=== PATIENT | male | born 1955 | race Caucasian/White ===

== ENCOUNTER 2016-06-24 | Outpatient (CLI) | payer OTHER | END 2016-06-24 08:47 | disposition critical access hospital (66) | DX: R45.851 Suicidal ideations (principal) | CPT/HCPCS: A0425; A0429 ==

== ENCOUNTER 2016-06-24 09:17 | Emergency (ER) | payer OTHER ==
[2016-06-24] MEDS ORDERED: LORazepam 0.5 MG TABLET PO STA (14:50)
[2016-06-24] MEDS ORDERED: LORazepam 0.5 MG TABLET ONE (15:00)
== END 2016-06-24 20:35 ==
DX: Z03.89 Encounter for observation for other suspected diseases and conditions ruled out (principal); F33.2 Major depressive disorder, recurrent severe without psychotic features; Z63.5 Disruption of family by separation and divorce; E11.9 Type 2 diabetes mellitus without complications; Z79.84 Long term (current) use of oral hypoglycemic drugs; Z91.14 Patient's other noncompliance with medication regimen; F41.0 Panic disorder [episodic paroxysmal anxiety]
CPT/HCPCS: 36415; 80048; 80306; 80320; 81001; 84443; 85025; 99285; A9270

== ENCOUNTER 2016-07-29 01:03 | Outpatient (CLI) | payer OTHER | END 2016-07-29 01:04 | disposition critical access hospital (66) | LOC: EMS 01:03 | PROVIDERS: ATTEND Surgery | DX: R42 Dizziness and giddiness (principal); W19.XXXA Unspecified fall, initial encounter; Y92.002 Bathroom of unspecified non-institutional (private) residence as the place of occurrence of the external cause | CPT/HCPCS: A0425; A0427 ==

== ENCOUNTER 2016-07-29 01:27 | Emergency (ER) | payer OTHER ==
[2016-07-29] MEDS ORDERED: SODIUM CHLORIDE 0.9% 1,000 ML IV ONE ×2 (02:07→03:05)
== END 2016-07-29 04:22 | disposition home or self-care (01) ==
DX: E86.0 Dehydration (principal); R41.82 Altered mental status, unspecified; R55 Syncope and collapse; R00.1 Bradycardia, unspecified; E11.9 Type 2 diabetes mellitus without complications

== ENCOUNTER 2016-12-19 09:21 | Outpatient (CLI) | payer OTHER | END 2016-12-19 09:22 | disposition critical access hospital (66) | LOC: EMS 09:21 | PROVIDERS: ATTEND Surgery | DX: R45.851 Suicidal ideations (principal) | CPT/HCPCS: A0425; A0429 ==

== ENCOUNTER 2016-12-19 09:53 | Emergency (ER) | payer OTHER ==
--- NOTE | 2016-12-19 10:08 | ED Physician Documentation ---
PD HPI MHE - Stated complaint Stated Complaint: MHE - Chief complaint Chief Complaint: MHE - History obtained from History obtained from: Patient, EMS - History of Present Illness Primary symptom: Suicidal ideation Timing - onset: Chronic Pain level max: 0 Pain level now: 0 Contributing factors: Family Similar symptoms before: Diagnosis (depression) Recently seen: Other (seen by his counselor and psychiatrist Tuesday at [facility]) - Additional information Additional information: States still feels suicidal. States he is going to jump off the bridge and does not feel that he can keep himself safe at home at this time Review of Systems Ten Systems: 10 systems reviewed and negative Constitutional: denies: Fever, Chills Nose: denies: Rhinorrhea / runny nose, Congestion Cardiac: denies: Chest pain / pressure Respiratory: denies: Cough GI: denies: Nausea, Vomiting Skin: denies: Rash Musculoskeletal: denies: Neck pain, Back pain Neurologic: denies: Headache PD PAST MEDICAL HISTORY - Past Medical History Cardiovascular: High cholesterol Respiratory: None Neuro: None Endocrine/Autoimmune: Type 2 diabetes GI: None : None HEENT: None Psych: Depression, Anxiety, Panic attacks, Other Musculoskeletal: Osteoarthritis Derm: None - Past Surgical History Past Surgical History: Yes Ortho: Knee replacement - Present Medications Home Medications: Ambulatory Orders Medication Instructions Recorded Confirmed [place] Carbonate 100 mg PO DAILY 12/19/16 12/19/16 Sertraline [Zoloft] 100 mg PO DAILY 12/19/16 12/19/16 - Allergies Allergies/Adverse Reactions: Allergies Allergy/AdvReac Type Severity Reaction Status Date / Time Penicillins Allergy Unknown Hives Verified 12/19/16 09:58 Tetracyclines Allergy Unknown Hives Verified 12/19/16 09:58 - Social History Does the pt smoke?: No Smoking Status: Never smoker Does the pt drink ETOH?: No Does the pt have substance abuse?: No - Immunizations Immunizations are current?: Yes - POLST Patient has POLST: No PD ED PE NORMAL - Vitals Vital signs reviewed: Yes - General General: Alert and oriented X 3, No acute distress - HEENT HEENT: PERRL, Moist mucous membranes - Neck Neck: Supple, no meningeal sign - Cardiac Cardiac: RRR, Strong equal pulses - Respiratory Respiratory: No respiratory distress, Clear bilaterally - Abdomen Abdomen: Soft, Non tender, Non distended - Back Back: No spinal TTP - Derm Derm: Warm and dry - Extremities Extremities: No tenderness to palpate - Neuro Neuro: Alert and oriented X 3, No motor deficit, No sensory deficit - Psych Psych: Normal mood, Normal affect Results - Vitals Vitals: Vital Signs - 24 hr 12/19/16 12/19/16 09:54 11:57 Temperature 36.5 C Heart Rate 60 70 Respiratory 20 17 Rate Blood Pressure 137/78 H 135/70 H O2 Saturation 100 97 Oxygen O2 Source Room air - Labs Labs: Laboratory Tests 12/19/16 12/19/16 12/19/16 10:10 10:45 10:45 WBC 8.4 RBC 4.66 L Hgb 13.3 L Hct 39.2 L MCV 84.2 MCH 28.5 MCHC 33.9 RDW 14.9 Plt Count 228 MPV 7.2 L Neut # 6.7 H Lymph # 1.0 L Hand # 0.5 Eos # 0.2 Baso # 0.0 Absolute Nucleated RBC 0.00 Nucleated RBCs 0.0 Sodium 138 Potassium 3.8 Chloride 104 Carbon Dioxide 28 Anion Gap 6.0 BUN 25 H Creatinine 1.0 Estimated GFR (MDRD) 76 L Glucose 115 H Calcium 9.0 Total Bilirubin 0.8 AST 22 ALT 23 Alkaline Phosphatase 44 Total Protein 6.9 Albumin 4.0 Globulin 2.9 Albumin/Globulin Ratio 1.4 Lipase 26 Urine Color YELLOW Urine Clarity CLEAR Urine pH 7.5 Ur Specific [place] 1.020 Urine Protein NEGATIVE Urine Glucose (UA) NEGATIVE Urine Ketones NEGATIVE Urine Occult Blood NEGATIVE Urine Nitrite NEGATIVE Urine Bilirubin NEGATIVE Urine Urobilinogen 0.2 (NORMAL) Ur Leukocyte Esterase NEGATIVE Ur Microscopic Review NOT INDICATED Urine Culture Comments NOT INDICATED Last Dose Date Last Dose Time Salicylates < 6.0 Urine Opiates Screen NEGATIVE Ur Oxycodone Screen NEGATIVE Urine Methadone Screen NEGATIVE Ur Propoxyphene Screen NEGATIVE Acetaminophen < 10 L Ur Barbiturates Screen NEGATIVE Ur Tricyclics Screen NEGATIVE Ur Phencyclidine Scrn NEGATIVE Ur Amphetamine Screen NEGATIVE U Methamphetamines Scrn NEGATIVE U Benzodiazepines Scrn NEGATIVE [place] Urine Cocaine Screen NEGATIVE U Cannabinoids Screen NEGATIVE Ethyl Alcohol < 5.0 12/19/16 10:45 WBC RBC Hgb Hct MCV MCH MCHC RDW Plt Count MPV Neut # Lymph # Hand # Eos # Baso # Absolute Nucleated RBC Nucleated RBCs Sodium Potassium Chloride Carbon Dioxide Anion Gap BUN Creatinine Estimated GFR (MDRD) Glucose Calcium Total Bilirubin AST ALT Alkaline Phosphatase Total Protein Albumin Globulin Albumin/Globulin Ratio Lipase Urine Color Urine Clarity Urine pH Ur Specific [place] Urine Protein Urine Glucose (UA) Urine Ketones Urine Occult Blood Urine Nitrite Urine Bilirubin Urine Urobilinogen Ur Leukocyte Esterase Ur Microscopic Review Urine Culture Comments Last Dose Date UNK Last Dose Time UNK Salicylates Urine Opiates Screen Ur Oxycodone Screen Urine Methadone Screen Ur Propoxyphene Screen Acetaminophen Ur Barbiturates Screen Ur Tricyclics Screen Ur Phencyclidine Scrn Ur Amphetamine Screen U Methamphetamines Scrn U Benzodiazepines Scrn [place] 0.37 Urine Cocaine Screen U Cannabinoids Screen Ethyl Alcohol PD MEDICAL DECISION MAKING - ED course Complexity details: reviewed old records, reviewed results, re-evaluated patient , considered differential, d/w patient, d/w nursing education consultant ED course: Patient is a 61-year-old male with a long history of depression. Social work was consulted and evaluated the patient. He is able to contract for safety and does have someone to stay with him today. He does not currently feel suicidal after talking with social work. Will follow up with his psychiatrist in the morning. Patient was given information for the crisis line. Patient counseled regarding signs and symptoms for which I believe and urgent re-evaluation would be necessary. Patient with good understanding of and agreement to plan and is comfortable going home at this time This document was made in part using voice recognition software. While efforts are made to proofread this document, sound alike and grammatical errors may occur. Departure - Departure Disposition: 01 Home, Self Care Clinical Impression: Depression Qualifiers: Depression Type: unspecified Qualified Code(s): F32.9 - Major depressive disorder, single episode, unspecified Condition: Stable Instructions: ED Depression Follow-Up: Angelique Rincon DO [Primary Care Provider] - Tomorrow Comments: Return if you worsen. Follow up with your doctor tomorrow as scheduled. Crisis Line Your blood pressure was elevated today on check in to the emergency department. This does not mean that you have hypertension, it is a common phenomenon to check into the emergency department and have elevated blood pressure. I recommend that you see your primary care physician within the week to have it rechecked when you're feeling better. Discharge Date/Time: 12/19/16 13:30
[2016-12-19 10:18] LABS: BILIRUBIN,URINE NEGATIVE (NEGATIVE); PH,URINE 7.5 PH (5.0-7.5)
[2016-12-19 10:32] LABS: UA CHARGE (STRIP ONLY) YES; UR CULTURE IF IND NOT INDICATED
[2016-12-19 10:50] LABS: BASOPHILS % (AUTO) 0.6 %; EOSINOPHILS # (AUTO) 0.2 10^3/uL (0.0-0.7); EOSINOPHILS % (AUTO) 2.3 %; HCT - HEMATOCRIT 39.2 % (42.0-52.0); HGB - HEMOGLOBIN 13.3 g/dL (14.0-18.0); LYMPHOCYTES % (AUTO) 11.7 %; MEAN CORPUSCULAR HEMOGLOBIN 28.5 pg (27.0-31.0); MEAN CORPUSCULAR HGB CONC 33.9 g/dL (32.0-36.0); MEAN CORPUSCULAR VOLUME 84.2 fL (80.0-94.0); MEAN PLATELET VOLUME 7.2 fL (7.4-11.4); MONOCYTES # (AUTO) 0.5 10^3/uL (0.0-1.0); MONOCYTES % (AUTO) 5.8 %; NEUTROPHILS # (AUTO) 6.7 10^3/uL (1.5-6.6); NEUTROPHILS % (AUTO) 79.6 %; RED BLOOD COUNT 4.66 10^6/uL (4.70-6.10); RED CELL DISTRIBUTION WIDTH 14.9 % (12.0-15.0); UNCORRECTED WHITE BLOOD COUNT 8.4 x10^3/uL; WHITE BLOOD COUNT 8.4 x10^3/uL (4.8-10.8)
[2016-12-19 11:07] LABS: ALBUMIN/GLOBULIN RATIO 1.4 (1.0-2.2); BILIRUBIN,TOTAL 0.8 mg/dL (0.2-1.0); BUN - BLOOD UREA NITROGEN 25 mg/dL (6-20); CARBON DIOXIDE - CO2 28 mmol/L (21-32); CHLORIDE 104 mmol/L (101-111); GFR - MDRD 76 (>89); GLUCOSE 115 mg/dL (70-100); LIPASE 26 U/L (22-51); POTASSIUM 3.8 mmol/L (3.5-5.0); SALICYLATE < 6.0 mg/dL; SODIUM 138 mmol/L (135-145); TOTAL PROTEIN 6.9 g/dL (6.7-8.2)
[2016-12-19 11:13] LABS: ACETAMINOPHEN < 10 ug/mL (10-30)
[2016-12-19 11:58] VITALS: BP 135/70
== END 2016-12-19 13:30 | disposition home or self-care (01) ==
LOC: EDUNIT# → ED 09:53
DX: F32.9 Major depressive disorder, single episode, unspecified (principal); R03.0 Elevated blood-pressure reading, without diagnosis of hypertension; E11.9 Type 2 diabetes mellitus without complications; Z96.659 Presence of unspecified artificial knee joint
CPT/HCPCS: 36415; 80053; 80178; 80306; 80307; 80320; 80329; 81001; 81003; 83690; 85025; 87086; 99283; 99284

== ENCOUNTER 2018-01-31 01:07 | Emergency (ER) | payer OTHER ==
--- NOTE | 2018-01-31 05:12 | ED Physician Documentation ---
History of Present Illness - Stated complaint Stated Complaint: MHE - History obtained from History obtained from: Patient, Police - Additonal information Additional information: 62-year-old male was brought in by police for suicidal ideations. The patient had a fight with his and now is feeling suicidal. The patient has not taken any overdose of medications or followed through any self-harm. The patient still feels suicidal and wants to end it all. The patient denies any homicidal ideations or any acute medical complaint. Symptoms are described as severe. The patient has a history of prior suicide attempts and has been placed in a mental health facility. No relieving factors Review of Systems Constitutional: denies: Fever, Chills Eyes: denies: Discharge Ears: denies: Ear pain Nose: denies: Congestion Throat: denies: Sore throat Cardiac: denies: Chest pain / pressure Respiratory: denies: Dyspnea GI: denies: Abdominal Pain : denies: Dysuria Musculoskeletal: denies: Neck pain Neurologic: denies: Generalized weakness Psychiatric: reports: Suicidal PD PAST MEDICAL HISTORY - Past Medical History Cardiovascular: High cholesterol Respiratory: None Endocrine/Autoimmune: Type 2 diabetes GI: None : None HEENT: None Psych: Depression, Anxiety, Panic attacks, Other Musculoskeletal: Osteoarthritis Derm: None - Past Surgical History Past Surgical History: Yes Ortho: Knee replacement - Present Medications Home Medications: Ambulatory Orders Medication Instructions Recorded Confirmed [place] Carbonate 100 mg PO DAILY 12/19/16 12/19/16 Sertraline [Zoloft] 100 mg PO DAILY 12/19/16 12/19/16 - Allergies Allergies/Adverse Reactions: Allergies Allergy/AdvReac Type Severity Reaction Status Date / Time Penicillins Allergy Unknown Hives Verified 01/31/18 05:19 Tetracyclines Allergy Unknown Hives Verified 01/31/18 05:19 - Social History Does the pt smoke?: No Smoking Status: Never smoker Does the pt drink ETOH?: No Does the pt have substance abuse?: No - Immunizations Immunizations are current?: Yes - POLST Patient has POLST: No PD ED PE NORMAL - General General: Alert and oriented X 3, No acute distress - HEENT HEENT: Atraumatic, PERRL, EOMI - Cardiac Cardiac: RRR, Strong equal pulses - Respiratory Respiratory: No respiratory distress - Abdomen Abdomen: Soft, Non tender, Non distended - Derm Derm: Normal color - Extremities Extremities: No deformity - Neuro Neuro: Alert and oriented X 3, No motor deficit, Normal speech PD ED PE EXPANDED - Psych Psych: Suicidal Results - Vitals Vitals: Vital Signs - 24 hr 01/31/18 01:10 Temperature 36.5 C Heart Rate 86 Respiratory 12 Rate Blood Pressure 170/99 H O2 Saturation 96 Oxygen O2 Source Room air - Labs Labs: Laboratory Tests 01/31/18 01/31/18 01/31/18 01:44 01:44 01:44 WBC 10.5 RBC 4.71 Hgb 13.3 L Hct 39.6 L MCV 84.0 MCH 28.2 MCHC 33.5 RDW 14.4 Plt Count 285 MPV 8.1 Neut # (Auto) 7.8 H Lymph # (Auto) 1.6 Harmon # (Auto) 0.7 Eos # (Auto) 0.3 Baso # (Auto) 0.1 Absolute Nucleated RBC 0.01 Nucleated RBC % 0.1 Sodium 138 Potassium 4.0 Chloride 103 Carbon Dioxide 27 Anion Gap 8.0 BUN 20 Creatinine 1.0 Estimated GFR (MDRD) 76 L Glucose 114 H Calcium 9.2 Total Bilirubin 0.2 AST 23 ALT 27 Alkaline Phosphatase 58 Total Protein 7.3 Albumin 4.1 Globulin 3.2 Albumin/Globulin Ratio 1.3 Lipase 30 Urine Color YELLOW Urine Clarity CLEAR Urine pH 6.5 Ur Specific [place] 1.015 Urine Protein NEGATIVE Urine Glucose (UA) NEGATIVE Urine Ketones NEGATIVE Urine Occult Blood TRACE-LYSE Urine Nitrite NEGATIVE Urine Bilirubin NEGATIVE Urine Urobilinogen 0.2 (NORMAL) Ur Leukocyte Esterase NEGATIVE Ur Microscopic Review NOT INDICATED Urine Opiates Screen NEGATIVE Ur Oxycodone Screen NEGATIVE Urine Methadone Screen NEGATIVE Ur Propoxyphene Screen NEGATIVE Ur Barbiturates Screen NEGATIVE Ur Tricyclics Screen NEGATIVE Ur Phencyclidine Scrn NEGATIVE Ur Amphetamine Screen NEGATIVE U Methamphetamines Scrn NEGATIVE U Benzodiazepines Scrn NEGATIVE Urine Cocaine Screen NEGATIVE U Cannabinoids Screen NEGATIVE Ethyl Alcohol < 5.0 PD MEDICAL DECISION MAKING - ED course ED course: 07:00 AM The patient is medically clear and pending evaluation by social work. The patient's care was turned over to the oncoming emergency physician Dr. Luna to follow-up on the recommendations from social work and for final d isposition. - Sepsis Event Vital Signs: Vital Signs - 24 hr 01/31/18 01:10 Temperature 36.5 C Heart Rate 86 Respiratory 12 Rate Blood Pressure 170/99 H O2 Saturation 96 Oxygen O2 Source Room air
[2018-01-31 05:47] LABS: MUDS CUTOFF CONCENTRATIONS CUTOFF CONC BELOW:
[2018-01-31 05:51] LABS: ALBUMIN 4.1 g/dL (3.2-5.5); ALBUMIN/GLOBULIN RATIO 1.3 (1.0-2.2); ALKALINE PHOSPHATASE 58 IU/L (42-121); ALT ALANINE AMINOTRANSFERASE 27 IU/L (10-60); AST ASPARTATE AMINOTRANSFERASE 23 IU/L (10-42); BILIRUBIN,TOTAL 0.2 mg/dL (0.2-1.0); BUN - BLOOD UREA NITROGEN 20 mg/dL (6-20); CALCIUM 9.2 mg/dL (8.5-10.3); CARBON DIOXIDE - CO2 27 mmol/L (21-32); CHLORIDE 103 mmol/L (101-111); GFR - MDRD 76 (>89); GLUCOSE 114 mg/dL (70-100); LIPASE 30 U/L (22-51); SODIUM 138 mmol/L (135-145); TOTAL PROTEIN 7.3 g/dL (6.7-8.2)
[2018-01-31 05:52] LABS: BILIRUBIN,URINE NEGATIVE (NEGATIVE); CLARITY,URINE CLEAR (CLEAR); GLUCOSE, URINE (UA) NEGATIVE (NEGATIVE); KETONES,URINE (UA) NEGATIVE (NEGATIVE); LEUKOCYTE ESTERASE, URINE NEGATIVE (NEGATIVE); NITRITE,URINE NEGATIVE (NEGATIVE); OCCULT BLOOD,URINE TRACE-LYSE (NEGATIVE); PH,URINE 6.5 PH (5.0-7.5); PROTEIN,URINE NEGATIVE (NEGATIVE); UROBILINOGEN,URINE 0.2 (NORMAL) E.U./dL (NORMAL)
[2018-01-31 05:53] LABS: AMPHETAMINE SCREEN,URINE NEGATIVE (NEGATIVE); BENZODIAZEPINES SCREEN, URINE NEGATIVE (NEGATIVE); COCAINE SCREEN URINE NEGATIVE (NEGATIVE); METHADONE SCREEN, URINE NEGATIVE (NEGATIVE); METHAMPHETAMINES SCREEN, URINE NEGATIVE (NEGATIVE); OPIATE SCREEN, URINE NEGATIVE (NEGATIVE); OXYCODONE SCREEN, URINE NEGATIVE (NEGATIVE); PROPOXYPHENE SCREEN, URINE NEGATIVE (NEGATIVE); TRICYCLIC ANTIDEPRESSANT,URINE NEGATIVE (NEGATIVE)
[2018-01-31 05:56] LABS: BASOPHILS # (AUTO) 0.1 10^3/uL (0.0-0.1); BASOPHILS % (AUTO) 1.2 %; EOSINOPHILS # (AUTO) 0.3 10^3/uL (0.0-0.7); EOSINOPHILS % (AUTO) 2.4 %; HGB - HEMOGLOBIN 13.3 g/dL (14.0-18.0); LYMPHOCYTES # (AUTO) 1.6 10^3/uL (1.5-3.5); LYMPHOCYTES % (AUTO) 14.9 %; MEAN CORPUSCULAR HEMOGLOBIN 28.2 pg (27.0-31.0); MEAN CORPUSCULAR HGB CONC 33.5 g/dL (32.0-36.0); MEAN PLATELET VOLUME 8.1 fL (7.4-11.4); MONOCYTES # (AUTO) 0.7 10^3/uL (0.0-1.0); MONOCYTES % (AUTO) 7.1 %; NEUTROPHILS # (AUTO) 7.8 10^3/uL (1.5-6.6); NEUTROPHILS % (AUTO) 74.4 %; PLT - PLATELET COUNT 285 10^3/uL (130-450); RED BLOOD COUNT 4.71 10^6/uL (4.70-6.10); RED CELL DISTRIBUTION WIDTH 14.4 % (12.0-15.0); WHITE BLOOD COUNT 10.5 x10^3/uL (4.8-10.8)
[2018-01-31 09:44] LABS: MAGNESIUM 2.3 mg/dL (1.7-2.8); SALICYLATE < 6.0 mg/dL
[2018-01-31 09:45] LABS: ACETAMINOPHEN < 10 ug/mL (10-30)
--- NOTE | 2018-01-31 10:03 | ED Physician Documentation ---
ED Addendum - Addendum Addendum: 01/31/18 10:02 iron worker apprentice saw the patient and had a long talk and discussion with him. They did work out a safety plan with him having good mechanisms for responding to feelings of depression which included crisis line and coping strategies. He has an appointment with his counselor this afternoon at 3. He does not feel like hurting himself and feels relaxed at this point. He does feel able to be discharged. The social services analyst feels he is not at risk for self-harm. We will d ischarge him at this point with continuing current medications and see his counselor today.
[2018-01-31 11:01] VITALS: BP 134/93
[2018-01-31 11:22] LABS: LITHIUM < 0.05 mmol/L
== END 2018-01-31 10:59 | disposition home or self-care (01) ==
LOC: ED 01:07
DX: R45.851 Suicidal ideations (principal); F43.21 Adjustment disorder with depressed mood; E11.9 Type 2 diabetes mellitus without complications; E78.00 Pure hypercholesterolemia, unspecified; Z96.659 Presence of unspecified artificial knee joint
CPT/HCPCS: 36415; 80053; 80178; 80306; 80307; 80320; 80329; 81001; 81003; 83690; 83735; 85025; 99283

== ENCOUNTER 2018-12-04 07:38 | Outpatient (CLI) | payer OTHER | END 2018-12-04 07:39 | disposition critical access hospital (66) | LOC: EMS 07:38 | PROVIDERS: ATTEND Surgery | DX: T65.92XA Toxic effect of unspecified substance, intentional self-harm, initial encounter (principal); R51 Headache; R41.0 Disorientation, unspecified; R53.1 Weakness | CPT/HCPCS: A0425; A0427 ==

== ENCOUNTER 2018-12-04 08:06 | Emergency (ER) | payer OTHER ==
[2018-12-04] MEDS ORDERED: FOLIC ACID INJ 1 MG, THIAMINE INJ 100 MG, MAGNESIUM SULFATE 2 GM, MULTIVITAMIN 10 ML in... IV STA ×5 (08:18)
--- NOTE | 2018-12-04 08:21 | ED Physician Documentation ---
PD HPI MHE - Stated complaint Stated Complaint: SI - Chief complaint Chief Complaint: MHE - History obtained from History obtained from: Patient, EMS - History of Present Illness Primary symptom: Suicidal ideation, Self harm - OD Timing - onset: Enter time (2199), Last night Contributing factors: Sig other Similar symptoms before: Diagnosis (depression with SI) Recently seen: Not recently seen - Additional information Additional information: 63-year-old male with a prior history of depression with suicidal ideation related to arguments with his was in an argument with his last night and he took 3 dogs of ethylene glycol. He states he left a bad taste in his mouth and that he has become a bit dizzy and he felt like he just wanted to sleep this off. He did tell his that he did this last night and this morning she called 911. He states that he still feels suicidal and felt that this morning he would want to walk to the bridge. He states that he did not want to drive because he was feeling dizzy and did not want hurt someone else. He states that he is feeling some blurring of his vision and describes it as static in his vision. He was wanting to sleep off the dizziness this morning. Review of Systems Constitutional: denies: Fever Eyes: reports: Decreased vision. denies: Photophobia Ears: denies: Ear pain Nose: denies: Rhinorrhea / runny nose, Congestion Throat: denies: Sore throat Cardiac: denies: Chest pain / pressure, Palpitations Respiratory: denies: Dyspnea, Cough GI: denies: Abdominal Pain, Nausea, Vomiting : denies: Dysuria, Frequency Skin: denies: Rash Musculoskeletal: denies: Neck pain, Back pain, Extremity pain Neurologic: reports: Other (dizziness). denies: Generalized weakness, Focal weakness, Numbness PD PAST MEDICAL HISTORY - Past Medical History Cardiovascular: High cholesterol Respiratory: None Endocrine/Autoimmune: Type 2 diabetes GI: None : None HEENT: None Psych: Depression, Anxiety, Panic attacks, Other Musculoskeletal: Osteoarthritis Derm: None - Past Surgical History Past Surgical History: Yes Ortho: Knee replacement - Present Medications Home Medications: Ambulatory Orders Medication Instructions Recorded Confirmed [place] Carbonate 100 mg PO DAILY 12/19/16 12/19/16 Sertraline [Zoloft] 100 mg PO DAILY 12/19/16 12/19/16 - Allergies Allergies/Adverse Reactions: Allergies Allergy/AdvReac Type Severity Reaction Status Date / Time Penicillins Allergy Unknown Hives Verified 01/31/18 05:19 Tetracyclines Allergy Unknown Hives Verified 01/31/18 05:19 - Social History Does the pt smoke?: No Smoking Status: Never smoker Does the pt drink ETOH?: No Does the pt have substance abuse?: No - Immunizations Immunizations are current?: Yes - POLST Patient has POLST: No PD ED PE NORMAL - Vitals Vital signs reviewed: Yes (hypertensive ) - General General: Alert and oriented X 3, No acute distress, Well developed/nourished - HEENT HEENT: Atraumatic, PERRL, EOMI - Neck Neck: Supple, no meningeal sign, No bony TTP - Cardiac Cardiac: RRR, No murmur - Respiratory Respiratory: No respiratory distress, Clear bilaterally - Abdomen Abdomen: Soft, Non tender - Back Back: No CVA TTP, No spinal TTP - Derm Derm: Normal color, Warm and dry, No rash - Extremities Extremities: No deformity, No edema - Neuro Neuro: Alert and oriented X 3, can vacuum tester 2-12 intact, No motor deficit, No sensory deficit, Normal speech Eye Opening: Spontaneous Motor: Obeys Commands Verbal: Oriented GCS Score: 15 - Psych Psych: Normal mood, Normal affect Results - Vitals Vitals: Vital Signs - 24 hr 12/04/18 12/04/18 08:11 09:02 Temperature 36.6 C Heart Rate 79 77 Respiratory 18 13 Rate Blood Pressure 165/109 H 176/94 H O2 Saturation 97 97 Oxygen O2 Source Room air - EKG (time done) 0814 Rate: Rate (enter#) (77) Rhythm: NSR Ischemia: Normal ST segments Compare to prior EKG: Unchanged from prior EKG (SPT 3 no changes ) Computer interpretation: Agree with computer - Labs Labs: Laboratory Tests 12/04/18 12/04/18 12/04/18 08:30 08:30 08:30 WBC 6.5 RBC 4.92 Hgb 13.6 L Hct 42.9 MCV 87.2 MCH 27.6 MCHC 31.7 L RDW 14.6 Plt Count 235 MPV 9.8 Neut # (Auto) 4.6 Lymph # (Auto) 1.0 L Emm[place] # (Auto) 0.6 Eos # (Auto) 0.2 Baso # (Auto) 0.1 Absolute Nucleated RBC 0.00 Nucleated RBC % 0.0 VBG pH VBG pCO2 VBG pO2 VBG HCO3 VBG Total CO2 VBG O2 Saturation VBG Base Excess Sodium 141 Potassium 4.3 Chloride 108 Carbon Dioxide 18 L Anion Gap 15.0 H BUN 20 Creatinine 1.0 Estimated GFR (MDRD) 76 L Glucose 169 H Calcium 8.9 Total Bilirubin 0.5 AST 27 ALT 38 Alkaline Phosphatase 68 Troponin I < 0.04 Total Protein 7.3 Albumin 4.1 Globulin 3.2 Albumin/Globulin Ratio 1.3 Lipase 32 Salicylates < 6.0 Acetaminophen < 10 L Ethyl Alcohol < 5.0 12/04/18 08:50 WBC RBC Hgb Hct MCV MCH MCHC RDW Plt Count MPV Neut # (Auto) Lymph # (Auto) [place] # (Auto) Eos # (Auto) Baso # (Auto) Absolute Nucleated RBC Nucleated RBC % VBG pH 7.311 VBG pCO2 40.1 L VBG pO2 49.8 H VBG HCO3 19.8 L VBG Total CO2 21.0 L VBG O2 Saturation 85.7 H VBG Base Excess -6.0 L Sodium Potassium Chloride Carbon Dioxide Anion Gap BUN Creatinine Estimated GFR (MDRD) Glucose Calcium Total Bilirubin AST ALT Alkaline Phosphatase Troponin I Total Protein Albumin Globulin Albumin/Globulin Ratio Lipase Salicylates Acetaminophen Ethyl Alcohol PD MEDICAL DECISION MAKING - ED course Complexity details: reviewed old records, reviewed results, re-evaluated patient, considered differential, d/w patient ED course: 63-year-old male with prior history of SI has taken ethylene glycol estimated 4 to 8 ounces orally at 2200 last night. This morning he is manifesting toxicity of dizziness and blurring vision. His pH is 7.31 and bicarb drip is administe red with a total of 100 mEq. An IV banana bag is begun as well. We do not have fomepizole here in the emergency department and I have asked our friends in the emergency department at [facility] in [place] to accept the patient in transfer for initiation of the fomepizole drip, recommended by poison control and Dr. Garland has graciously agreed to accept the patient in transfer. Departure - Departure Disposition: 02 Transfer Acute Care Hosp Clinical Impression: Attempted suicide Depression Qualifiers: Depression Type: reactive depression Qualified Code(s): F32.9 - Major depressive disorder, single episode, unspecified Ethylene glycol poisoning Qualifiers: Encounter type: initial encounter Injury intent: intentional self-harm Twan lified Code(s): T52.8X2A - Toxic effect of other organic solvents, intentional self-harm, initial encounter
--- NOTE | 2018-12-04 08:47 | XRAY Report ---
Reason: cp Procedure Date: 12/04/2018 Accession Number: [id number] / [id number] Procedure: XR - Chest 1 View X-Ray CPT Code: 61849 FULL RESULT: EXAM: CHEST RADIOGRAPHY EXAM DATE: 12/04/2018 08:25 AM. CLINICAL HISTORY: Chest pain. Reportedly drank antifreeze. COMPARISON: 03/01/2006. TECHNIQUE: 1 view. FINDINGS: Lungs/Pleura: No focal opacities or vascular congestion. No pleural effusion or pneumothorax. Mediastinum: Stable. No cherrie cardiomegaly. Other: No acute fracture evident. IMPRESSION: 1. No acute cardiopulmonary findings. RADIA
[2018-12-04 08:48] LABS: BASOPHILS # (AUTO) 0.1 10^3/uL (0.0-0.1); BASOPHILS % (AUTO) 0.8 %; EOSINOPHILS # (AUTO) 0.2 10^3/uL (0.0-0.7); EOSINOPHILS % (AUTO) 2.4 %; HGB - HEMOGLOBIN 13.6 g/dL (14.0-18.0); LYMPHOCYTES % (AUTO) 15.9 %; MEAN CORPUSCULAR HEMOGLOBIN 27.6 pg (27.0-31.0); MEAN CORPUSCULAR HGB CONC 31.7 g/dL (32.0-36.0); MEAN CORPUSCULAR VOLUME 87.2 fL (80.0-94.0); MEAN PLATELET VOLUME 9.8 fL (7.4-11.4); MONOCYTES # (AUTO) 0.6 10^3/uL (0.0-1.0); MONOCYTES % (AUTO) 8.9 %; NEUTROPHILS # (AUTO) 4.6 10^3/uL (1.5-6.6); NEUTROPHILS % (AUTO) 70.9 %; PLT - PLATELET COUNT 235 10^3/uL (130-450); RED BLOOD COUNT 4.92 10^6/uL (4.70-6.10); RED CELL DISTRIBUTION WIDTH 14.6 % (12.0-15.0); WHITE BLOOD COUNT 6.5 x10^3/uL (4.8-10.8)
[2018-12-04 08:53] LABS: VBG PCO2 40.1 mmHg (41-51); VBG PH 7.311 (7.31-7.41); VBG PO2 49.8 mmHg (25-47)
[2018-12-04 09:02] LABS: ACETAMINOPHEN < 10 ug/mL (10-30); ALBUMIN 4.1 g/dL (3.2-5.5); ALBUMIN/GLOBULIN RATIO 1.3 (1.0-2.2); ALKALINE PHOSPHATASE 68 IU/L (42-121); ALT ALANINE AMINOTRANSFERASE 38 IU/L (10-60); AST ASPARTATE AMINOTRANSFERASE 27 IU/L (10-42); BILIRUBIN,TOTAL 0.5 mg/dL (0.2-1.0); BUN - BLOOD UREA NITROGEN 20 mg/dL (6-20); CALCIUM 8.9 mg/dL (8.5-10.3); CARBON DIOXIDE - CO2 18 mmol/L (21-32); CHLORIDE 108 mmol/L (101-111); GFR - MDRD 76 (>89); GLUCOSE 169 mg/dL (70-100); LIPASE 32 U/L (22-51); SALICYLATE < 6.0 mg/dL; SODIUM 141 mmol/L (135-145); TOTAL PROTEIN 7.3 g/dL (6.7-8.2)
[2018-12-04] MEDS ORDERED: SODIUM BICARBONATE 100 MEQ in DEXTROSE 5% 1,000 ML IV STA (09:02)
[2018-12-04 09:03] VITALS: BP 176/94
[2018-12-04 09:08] LABS: MUDS CUTOFF CONCENTRATIONS CUTOFF CONC BELOW:
[2018-12-04 09:11] LABS: BILIRUBIN,URINE NEGATIVE (NEGATIVE); GLUCOSE, URINE (UA) NEGATIVE (NEGATIVE); KETONES,URINE (UA) NEGATIVE (NEGATIVE); LEUKOCYTE ESTERASE, URINE NEGATIVE (NEGATIVE); NITRITE,URINE NEGATIVE (NEGATIVE); OCCULT BLOOD,URINE TRACE-LYSE (NEGATIVE); PH,URINE 5.5 PH (5.0-7.5); PROTEIN,URINE NEGATIVE (NEGATIVE); UROBILINOGEN,URINE 0.2 (NORMAL) E.U./dL (NORMAL)
[2018-12-04 09:14] LABS: CLARITY,URINE CLEAR (CLEAR)
[2018-12-04 09:22] LABS: AMPHETAMINE SCREEN,URINE NEGATIVE (NEGATIVE); BENZODIAZEPINES SCREEN, URINE NEGATIVE (NEGATIVE); COCAINE SCREEN URINE NEGATIVE (NEGATIVE); METHADONE SCREEN, URINE NEGATIVE (NEGATIVE); METHAMPHETAMINES SCREEN, URINE NEGATIVE (NEGATIVE); OPIATE SCREEN, URINE NEGATIVE (NEGATIVE); OXYCODONE SCREEN, URINE NEGATIVE (NEGATIVE); PROPOXYPHENE SCREEN, URINE NEGATIVE (NEGATIVE); TRICYCLIC ANTIDEPRESSANT,URINE NEGATIVE (NEGATIVE)
[2018-12-04] MEDS ORDERED: SODIUM BICARBONATE 8.4% 50 MEQ/50 ML VIAL ONE (09:24)
[2018-12-04] MEDS ORDERED: DEXTROSE 5% 1,000 ML IV ONE (09:28)
== END 2018-12-04 09:37 | disposition short-term general hospital (02) ==
LOC: EDUNIT# → ED 08:06
DX: T51.8X2A Toxic effect of other alcohols, intentional self-harm, initial encounter (principal); R42 Dizziness and giddiness; H53.8 Other visual disturbances; F32.9 Major depressive disorder, single episode, unspecified; E11.9 Type 2 diabetes mellitus without complications
CPT/HCPCS: 36415; 71045; 80320; 80329; 81003; 82803; 83690; 84484; 93005; 96374; 96375; 99285; J3411; 80053; 80306; 80307; 81001; 84443; 85025; 87086

== ENCOUNTER 2018-12-04 09:36 | Outpatient (CLI) | payer OTHER | END 2018-12-04 09:37 | disposition short-term general hospital (02) | LOC: EMS 09:36 | PROVIDERS: ATTEND Surgery | DX: T51.8X2A Toxic effect of other alcohols, intentional self-harm, initial encounter (principal); H53.8 Other visual disturbances; R42 Dizziness and giddiness | CPT/HCPCS: A0425; A0427 ==

== ENCOUNTER 2019-01-09 01:02 | Outpatient (CLI) | payer OTHER | END 2019-01-09 01:03 | disposition critical access hospital (66) | LOC: EMS 01:02 | PROVIDERS: ATTEND Surgery | DX: R45.851 Suicidal ideations (principal) | CPT/HCPCS: A0425; A0429 ==

== ENCOUNTER 2019-01-09 01:29 | Emergency (ER) | payer OTHER ==
--- NOTE | 2019-01-09 02:05 | ED Physician Documentation ---
PD HPI MHE - Stated complaint Stated Complaint: SI - Chief complaint Chief Complaint: MHE - History obtained from History obtained from: Patient - History of Present Illness Primary symptom: Suicidal ideation (He does have suicidal ideation occasionally and has ongoing depression. 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 Reportedly he and his had had some argument or disagreement and the patient felt stressed and felt he had to get out of the house. He found himself going to the bridge. He actually was sitting up on the railing of the bridge contemplating suicide but then called the police for help. They brought him here. The patient states he is not feeling suicidal still but would like help for some type of counseling for he and his . The patient himself gets counseling weekly at the [facility] in [place].), Depression, Off meds (He says he has been on antidepressant medicines in the past and most recently is on Wellbutrin. It is a newer prescription he had been taking it irregularly.) Contributing factors: Sig other. No: Substance abuse - ETOH, Substance abuse - drugs Similar symptoms before: Diagnosis (depression and suicidality. Has had overdose of antifreeze a month ago.) Recently seen: Admitted (he says he has been admitted for suicidality 3 times and feels that the treatment is now redundant. He is not feeling that that would be helpful. He would like counseling for he and his .), Not recently seen Review of Systems Constitutional: denies: Fever Nose: denies: Rhinorrhea / runny nose, Congestion Throat: denies: Sore throat Respiratory: reports: Cough (last week, improved) GI: denies: Nausea, Vomiting, Diarrhea Neurologic: denies: Generalized weakness, Focal weakness, Numbness, Altered mental status, Headache PD PAST MEDICAL HISTORY - Past Medical History Cardiovascular: High cholesterol Respiratory: None Endocrine/Autoimmune: Type 2 diabetes GI: None : None HEENT: None Psych: Depression, Anxiety, Panic attacks, Other Musculoskeletal: Osteoarthritis Derm: None - Past Surgical History Past Surgical History: Yes Ortho: Knee replacement - Allergies Allergies/Adverse Reactions: Allergies Allergy/AdvReac Type Severity Reaction Status Date / Time Penicillins Allergy Unknown Hives Verified 01/09/19 01:37 Tetracyclines Allergy Unknown Hives Verified 01/09/19 01:37 - Social History Does the pt smoke?: No Smoking Status: Never smoker Does the pt drink ETOH?: No Does the pt have substance abuse?: No - Immunizations Immunizations are current?: Yes - POLST Patient has POLST: No PD ED PE NORMAL - Vitals Vital signs reviewed: Yes - General General: Alert and oriented X 3, No acute distress, Well developed/nourished - HEENT HEENT: Pharynx benign - Neck Neck: Supple, no meningeal sign, No adenopathy - Cardiac Cardiac: RRR, No murmur - Respiratory Respiratory: Clear bilaterally - Derm Derm: Normal color, Warm and dry - Extremities Extremities: Normal ROM s pain, No edema, No calf tenderness / cord - Neuro Neuro: Alert and oriented X 3, No motor deficit, Normal speech Eye Opening: Spontaneous Motor: Obeys Commands Verbal: Oriented GCS Score: 15 Results - Vitals Vitals: Vital Signs - 24 hr 01/09/19 01/09/19 01:31 07:43 Temperature 36.2 C L Heart Rate 96 84 Respiratory 18 19 Rate Blood Pressure 186/103 H 161/99 H O2 Saturation 98 95 Oxygen O2 Source Room air - Labs Labs: Laboratory Tests 01/09/19 01/09/19 01/09/19 02:00 02:39 02:39 WBC 9.8 RBC 4.84 Hgb 13.6 L Hct 41.7 L MCV 86.2 MCH 28.1 MCHC 32.6 RDW 13.8 Plt Count 252 MPV 9.6 Neut # (Auto) 7.3 H Lymph # (Auto) 1.3 L [place] # (Auto) 0.8 Eos # (Auto) 0.3 Baso # (Auto) 0.1 Absolute Nucleated RBC 0.00 Nucleated RBC % 0.0 Sodium 141 Potassium 4.1 Chloride 104 Carbon Dioxide 24 Anion Gap 13.0 BUN 20 Creatinine 1.0 Estimated GFR (MDRD) 76 L Glucose 171 H Calcium 9.4 Total Bilirubin 0.4 AST 27 ALT 36 Alkaline Phosphatase 65 Total Protein 7.5 Albumin 4.1 Globulin 3.4 Albumin/Globulin Ratio 1.2 Lipase 29 Vitamin B12 TSH Urine Color YELLOW Urine Clarity CLEAR Urine pH 6.0 Ur Specific [place] 1.015 Urine Protein TRACE Urine Glucose (UA) NEGATIVE Urine Ketones NEGATIVE Urine Occult Blood TRACE-INTA Urine Nitrite NEGATIVE Urine Bilirubin NEGATIVE Urine Urobilinogen 0.2 (NORMAL) Ur Leukocyte Esterase NEGATIVE Ur Microscopic Review NOT INDICATED Urine Culture Comments NOT INDICATED Salicylates < 6.0 Urine Opiates Screen NEGATIVE Ur Oxycodone Screen NEGATIVE Urine Methadone Screen NEGATIVE Ur Propoxyphene Screen NEGATIVE Acetaminophen < 10 L Ur Barbiturates Screen NEGATIVE Ur Tricyclics Screen NEGATIVE Ur Phencyclidine Scrn NEGATIVE Ur Amphetamine Screen NEGATIVE U Methamphetamines Scrn NEGATIVE U Benzodiazepines Scrn NEGATIVE Urine Cocaine Screen NEGATIVE U Cannabinoids Screen NEGATIVE Ethyl Alcohol 6.3 01/09/19 02:39 WBC RBC Hgb Hct MCV MCH MCHC RDW Plt Count MPV Neut # (Auto) Lymph # (Auto) [place] # (Auto) Eos # (Auto) Baso # (Auto) Absolute Nucleated RBC Nucleated RBC % Sodium Potassium Chloride Carbon Dioxide Anion Gap BUN Creatinine Estimated GFR (MDRD) Glucose Calcium Total Bilirubin AST ALT Alkaline Phosphatase Total Protein Albumin Globulin Albumin/Globulin Ratio Lipase Vitamin B12 604 TSH 3.98 Urine Color Urine Clarity Urine pH Ur Specific [place] Urine Protein Urine Glucose (UA) Urine Ketones Urine Occult Blood Urine Nitrite Urine Bilirubin Urine Urobilinogen Ur Leukocyte Esterase Ur Microscopic Review Urine Culture Comments Salicylates Urine Opiates Screen Ur Oxycodone Screen Urine Methadone Screen Ur Propoxyphene Screen Acetaminophen Ur Barbiturates Screen Ur Tricyclics Screen Ur Phencyclidine Scrn Ur Amphetamine Screen U Methamphetamines Scrn U Benzodiazepines Scrn Urine Cocaine Screen U Cannabinoids Screen Ethyl Alcohol PD MEDICAL DECISION MAKING - ED course Complexity details: re-evaluated patient (He is calm here and states he feels past the stress response and does not have any suicidal ideation at the point. He is asking for assistance from social work to help with couples counseling or other ideas for he and his .), considered differential (He does seem to be over the acute stress reaction. He is calm and interacts well here. He is looking forward to work and states he needs to take care of his . He is asking about information and resources for couples counseling. At this point I do not see that he would necessarily be involuntary. Will await social work to see him in the morning regarding available counseling resources.), d/w patient Departure - Departure Clinical Impression: Suicidal ideation, Stress response Depression Qualifiers: Depression Type: major depressive disorder Major depression recurrence: unspecified whether recurrent Active/Remission status: remission status unspecified Qualified Code(s): F32.9 - Major depressive disorder, single episode, unspecified Condition: Stable Record reviewed to determine appropriate education?: Yes Instructions: ED Stress React Comments: Resume your Wellbutrin and take it regularly. [place] Follow-up regarding couples counseling as well.
[2019-01-09 02:46] LABS: BASOPHILS # (AUTO) 0.1 10^3/uL (0.0-0.1); BASOPHILS % (AUTO) 0.6 %; EOSINOPHILS # (AUTO) 0.3 10^3/uL (0.0-0.7); EOSINOPHILS % (AUTO) 2.8 %; HGB - HEMOGLOBIN 13.6 g/dL (14.0-18.0); LYMPHOCYTES # (AUTO) 1.3 10^3/uL (1.5-3.5); LYMPHOCYTES % (AUTO) 12.8 %; MEAN CORPUSCULAR HEMOGLOBIN 28.1 pg (27.0-31.0); MEAN CORPUSCULAR HGB CONC 32.6 g/dL (32.0-36.0); MEAN CORPUSCULAR VOLUME 86.2 fL (80.0-94.0); MEAN PLATELET VOLUME 9.6 fL (7.4-11.4); MONOCYTES # (AUTO) 0.8 10^3/uL (0.0-1.0); MONOCYTES % (AUTO) 8.1 %; NEUTROPHILS # (AUTO) 7.3 10^3/uL (1.5-6.6); NEUTROPHILS % (AUTO) 74.6 %; PLT - PLATELET COUNT 252 10^3/uL (130-450); RED BLOOD COUNT 4.84 10^6/uL (4.70-6.10); RED CELL DISTRIBUTION WIDTH 13.8 % (12.0-15.0); WHITE BLOOD COUNT 9.8 x10^3/uL (4.8-10.8)
[2019-01-09 03:05] LABS: MUDS CUTOFF CONCENTRATIONS CUTOFF CONC BELOW:
[2019-01-09 03:06] LABS: BILIRUBIN,URINE NEGATIVE (NEGATIVE); GLUCOSE, URINE (UA) NEGATIVE (NEGATIVE); KETONES,URINE (UA) NEGATIVE (NEGATIVE); LEUKOCYTE ESTERASE, URINE NEGATIVE (NEGATIVE); NITRITE,URINE NEGATIVE (NEGATIVE); OCCULT BLOOD,URINE TRACE-INTA (NEGATIVE); PROTEIN,URINE TRACE mg/dL (NEGATIVE); UROBILINOGEN,URINE 0.2 (NORMAL) E.U./dL (NORMAL)
[2019-01-09 03:07] LABS: CLARITY,URINE CLEAR (CLEAR)
[2019-01-09 03:09] LABS: BUN - BLOOD UREA NITROGEN 20 mg/dL (6-20); CARBON DIOXIDE - CO2 24 mmol/L (21-32); CHLORIDE 104 mmol/L (101-111); SODIUM 141 mmol/L (135-145)
[2019-01-09 03:10] LABS: ACETAMINOPHEN < 10 ug/mL (10-30); ALBUMIN 4.1 g/dL (3.2-5.5); ALBUMIN/GLOBULIN RATIO 1.2 (1.0-2.2); ALKALINE PHOSPHATASE 65 IU/L (42-121); ALT ALANINE AMINOTRANSFERASE 36 IU/L (10-60); AST ASPARTATE AMINOTRANSFERASE 27 IU/L (10-42); BILIRUBIN,TOTAL 0.4 mg/dL (0.2-1.0); CALCIUM 9.4 mg/dL (8.5-10.3); GFR - MDRD 76 (>89); GLUCOSE 171 mg/dL (70-100); LIPASE 29 U/L (22-51); SALICYLATE < 6.0 mg/dL; TOTAL PROTEIN 7.5 g/dL (6.7-8.2)
[2019-01-09 03:16] LABS: THYROID STIMULATING HORMONE 3.98 uIU/mL (0.34-5.60)
[2019-01-09 03:17] LABS: AMPHETAMINE SCREEN,URINE NEGATIVE (NEGATIVE); BENZODIAZEPINES SCREEN, URINE NEGATIVE (NEGATIVE); COCAINE SCREEN URINE NEGATIVE (NEGATIVE); METHADONE SCREEN, URINE NEGATIVE (NEGATIVE); METHAMPHETAMINES SCREEN, URINE NEGATIVE (NEGATIVE); OPIATE SCREEN, URINE NEGATIVE (NEGATIVE); OXYCODONE SCREEN, URINE NEGATIVE (NEGATIVE); PROPOXYPHENE SCREEN, URINE NEGATIVE (NEGATIVE); TRICYCLIC ANTIDEPRESSANT,URINE NEGATIVE (NEGATIVE)
[2019-01-09 13:59] VITALS: BP 129/74
== END 2019-01-09 13:58 | disposition home or self-care (01) ==
LOC: EDUNIT# → ED 01:29
DX: R45.851 Suicidal ideations (principal); F43.9 Reaction to severe stress, unspecified; F32.9 Major depressive disorder, single episode, unspecified; E11.9 Type 2 diabetes mellitus without complications
CPT/HCPCS: 36415; 80053; 80306; 80307; 80320; 80329; 81001; 81003; 82607; 82652; 83690; 84443; 85025; 87086; 99283; 99284

== ENCOUNTER 2019-02-25 20:39 | Emergency (ER) | payer OTHER ==
--- NOTE | 2019-02-25 21:00 | ED Physician Documentation ---
PD HPI MHE - Stated complaint Stated Complaint: MHE - Chief complaint Chief Complaint: MHE - History obtained from History obtained from: Patient, Police - History of Present Illness Primary symptom: Suicidal ideation Timing - onset: Today Contributing factors: Sig other Similar symptoms before: Other (several previous [facility] ED visits for depression and SI) Recently seen: Emergency Dept (2 months ago for SI) - Additional information Additional information: patient walked from [place]. upon arriving there, he talked to a strategic accounts manager and told them he was feeling depressed due to his berating him; patient says she has exhibited a complete personality change since having an anoxic brain injury, and that she is polite to others but is always angry with him and insults and belittles him. He then told the strategic accounts manager he intended to jump off the bridge and started walking from the parking lot to the bridge span. strategic accounts manager was able to stop him and police were called. Review of Systems Cardiac: reports: Reviewed and negative Respiratory: reports: Reviewed and negative GI: reports: Reviewed and negative Psychiatric: reports: Depressed, Suicidal, Anxiety. denies: Homicidal PD PAST MEDICAL HISTORY - Past Medical History Cardiovascular: High cholesterol Respiratory: None Endocrine/Autoimmune: Type 2 diabetes GI: None : None HEENT: None Psych: Depression, Anxiety, Panic attacks, Other Musculoskeletal: Osteoarthritis Derm: None - Past Surgical History Past Surgical History: Yes Ortho: Knee replacement - Allergies Allergies/Adverse Reactions: Allergies Allergy/AdvReac Type Severity Reaction Status Date / Time Penicillins Allergy Unknown Hives Verified 01/09/19 01:37 Tetracyclines Allergy Unknown Hives Verified 01/09/19 01:37 - Social History Does the pt smoke?: No Smoking Status: Never smoker Does the pt drink ETOH?: No Does the pt have substance abuse?: No - Immunizations Immunizations are current?: Yes - POLST Patient has POLST: No PD ED PE NORMAL - Vitals Vital signs reviewed: Yes - General General: Alert and oriented X 3, No acute distress, Well developed/nourished - Cardiac Cardiac: RRR, No murmur - Respiratory Respiratory: No respiratory distress, Clear bilaterally - Abdomen Abdomen: Soft, Non tender - Neuro Neuro: Alert and oriented X 3, Normal speech Eye Opening: Spontaneous Motor: Obeys Commands Verbal: Oriented GCS Score: 15 - Psych Psych: Normal mood, Normal affect Results - Vitals Vitals: Oxygen O2 Source Room air - Labs Labs: Laboratory Tests 02/25/19 02/25/19 02/25/19 20:57 21:10 21:10 WBC 9.7 RBC 5.14 Hgb 14.2 Hct 44.5 MCV 86.6 MCH 27.6 MCHC 31.9 L RDW 13.9 Plt Count 295 MPV 9.9 Neut # (Auto) 7.3 H Lymph # (Auto) 1.5 [place] # (Auto) 0.7 Eos # (Auto) 0.2 Baso # (Auto) 0.1 Absolute Nucleated RBC 0.00 Nucleated RBC % 0.0 Sodium 141 Potassium 4.0 Chloride 101 Carbon Dioxide 30 Anion Gap 10.0 BUN 23 H Creatinine 1.1 Estimated GFR (MDRD) 68 L Glucose 150 H Calcium 9.5 Total Bilirubin 0.4 AST 19 ALT 33 Alkaline Phosphatase 67 Total Protein 7.4 Albumin 4.4 Globulin 3.0 Albumin/Globulin Ratio 1.5 Lipase 33 TSH Urine Color YELLOW Urine Clarity CLEAR Urine pH 5.0 Ur Specific [place] >=1.030 H Urine Protein TRACE Urine Glucose (UA) NEGATIVE Urine Ketones NEGATIVE Urine Occult Blood TRACE-LYSE Urine Nitrite NEGATIVE Urine Bilirubin NEGATIVE Urine Urobilinogen 0.2 (NORMAL) Ur Leukocyte Esterase NEGATIVE Ur Microscopic Review NOT INDICATED Urine Culture Comments NOT INDICATED Salicylates < 6.0 Urine Opiates Screen NEGATIVE Ur Oxycodone Screen NEGATIVE Urine Methadone Screen NEGATIVE Ur Propoxyphene Screen NEGATIVE Acetaminophen < 10 L Ur Barbiturates Screen NEGATIVE Ur Tricyclics Screen NEGATIVE Ur Phencyclidine Scrn NEGATIVE Ur Amphetamine Screen NEGATIVE U Methamphetamines Scrn NEGATIVE U Benzodiazepines Scrn NEGATIVE Urine Cocaine Screen NEGATIVE U Cannabinoids Screen NEGATIVE Ethyl Alcohol < 5.0 02/25/19 21:10 WBC RBC Hgb Hct MCV MCH MCHC RDW Plt Count MPV Neut # (Auto) Lymph # (Auto) [place] # (Auto) Eos # (Auto) Baso # (Auto) Absolute Nucleated RBC Nucleated RBC % Sodium Potassium Chloride Carbon Dioxide Anion Gap BUN Creatinine Estimated GFR (MDRD) Glucose Calcium Total Bilirubin AST ALT Alkaline Phosphatase Total Protein Albumin Globulin Albumin/Globulin Ratio Lipase TSH 3.66 Urine Color Urine Clarity Urine pH Ur Specific [place] Urine Protein Urine Glucose (UA) Urine Ketones Urine Occult Blood Urine Nitrite Urine Bilirubin Urine Urobilinogen Ur Leukocyte Esterase Ur Microscopic Review Urine Culture Comments Salicylates Urine Opiates Screen Ur Oxycodone Screen Urine Methadone Screen Ur Propoxyphene Screen Acetaminophen Ur Barbiturates Screen Ur Tricyclics Screen Ur Phencyclidine Scrn Ur Amphetamine Screen U Methamphetamines Scrn U Benzodiazepines Scrn Urine Cocaine Screen U Cannabinoids Screen Ethyl Alcohol PD MEDICAL DECISION MAKING - ED course Complexity details: reviewed old records, reviewed results, re-evaluated patient, considered differential, d/w patient ED course: calm and pleasant during ED stay. He wants to be discharged home but understands when I tell him I cannot discharge him until I obtain the opinion of MHP. MHP consult clears patient for discharge home; he is able to contract for safety, denies SI during ED stay and expresses interest in returning to work as well as continuing to pursue counseling for he and his Departure - Departure Disposition: 01 Home, Self Care Clinical Impression: Suicidal ideation Depression Qualifiers: Depression Type: unspecified Qualified Code(s): F32.9 - Major depressive disorder, single episode, unspecified Condition: Good Instructions: ED Depression Forms: Activity restrictions Discharge Date/Time: 02/26/19 03:50
[2019-02-25 21:06] LABS: MUDS CUTOFF CONCENTRATIONS CUTOFF CONC BELOW:
[2019-02-25 21:08] LABS: BILIRUBIN,URINE NEGATIVE (NEGATIVE); GLUCOSE, URINE (UA) NEGATIVE (NEGATIVE); KETONES,URINE (UA) NEGATIVE (NEGATIVE); LEUKOCYTE ESTERASE, URINE NEGATIVE (NEGATIVE); NITRITE,URINE NEGATIVE (NEGATIVE); OCCULT BLOOD,URINE TRACE-LYSE (NEGATIVE); PROTEIN,URINE TRACE mg/dL (NEGATIVE); UROBILINOGEN,URINE 0.2 (NORMAL) E.U./dL (NORMAL)
[2019-02-25 21:09] LABS: CLARITY,URINE CLEAR (CLEAR)
[2019-02-25 21:14] LABS: BASOPHILS # (AUTO) 0.1 10^3/uL (0.0-0.1); BASOPHILS % (AUTO) 0.6 %; EOSINOPHILS # (AUTO) 0.2 10^3/uL (0.0-0.7); EOSINOPHILS % (AUTO) 1.7 %; HGB - HEMOGLOBIN 14.2 g/dL (14.0-18.0); LYMPHOCYTES # (AUTO) 1.5 10^3/uL (1.5-3.5); LYMPHOCYTES % (AUTO) 14.9 %; MEAN CORPUSCULAR HEMOGLOBIN 27.6 pg (27.0-31.0); MEAN CORPUSCULAR HGB CONC 31.9 g/dL (32.0-36.0); MEAN CORPUSCULAR VOLUME 86.6 fL (80.0-94.0); MEAN PLATELET VOLUME 9.9 fL (7.4-11.4); MONOCYTES # (AUTO) 0.7 10^3/uL (0.0-1.0); MONOCYTES % (AUTO) 7.4 %; NEUTROPHILS # (AUTO) 7.3 10^3/uL (1.5-6.6); NEUTROPHILS % (AUTO) 74.8 %; PLT - PLATELET COUNT 295 10^3/uL (130-450); RED BLOOD COUNT 5.14 10^6/uL (4.70-6.10); RED CELL DISTRIBUTION WIDTH 13.9 % (12.0-15.0); WHITE BLOOD COUNT 9.7 x10^3/uL (4.8-10.8)
[2019-02-25 21:20] LABS: AMPHETAMINE SCREEN,URINE NEGATIVE (NEGATIVE); BENZODIAZEPINES SCREEN, URINE NEGATIVE (NEGATIVE); COCAINE SCREEN URINE NEGATIVE (NEGATIVE); METHADONE SCREEN, URINE NEGATIVE (NEGATIVE); METHAMPHETAMINES SCREEN, URINE NEGATIVE (NEGATIVE); OPIATE SCREEN, URINE NEGATIVE (NEGATIVE); OXYCODONE SCREEN, URINE NEGATIVE (NEGATIVE); PROPOXYPHENE SCREEN, URINE NEGATIVE (NEGATIVE); TRICYCLIC ANTIDEPRESSANT,URINE NEGATIVE (NEGATIVE)
[2019-02-25 21:32] LABS: ACETAMINOPHEN < 10 ug/mL (10-30); ALBUMIN 4.4 g/dL (3.2-5.5); ALBUMIN/GLOBULIN RATIO 1.5 (1.0-2.2); ALKALINE PHOSPHATASE 67 IU/L (42-121); ALT ALANINE AMINOTRANSFERASE 33 IU/L (10-60); AST ASPARTATE AMINOTRANSFERASE 19 IU/L (10-42); BILIRUBIN,TOTAL 0.4 mg/dL (0.2-1.0); BUN - BLOOD UREA NITROGEN 23 mg/dL (6-20); CALCIUM 9.5 mg/dL (8.5-10.3); CARBON DIOXIDE - CO2 30 mmol/L (21-32); CHLORIDE 101 mmol/L (101-111); CREATININE 1.1 mg/dL (0.6-1.2); GFR - MDRD 68 (>89); GLUCOSE 150 mg/dL (70-100); LIPASE 33 U/L (22-51); SALICYLATE < 6.0 mg/dL; SODIUM 141 mmol/L (135-145); TOTAL PROTEIN 7.4 g/dL (6.7-8.2)
[2019-02-26 03:35] VITALS: BP 149/90
== END 2019-02-26 03:50 | disposition home or self-care (01) ==
LOC: ED 20:39
DX: R45.851 Suicidal ideations (principal); F32.9 Major depressive disorder, single episode, unspecified; E11.9 Type 2 diabetes mellitus without complications
CPT/HCPCS: 36415; 80053; 80306; 80307; 80320; 80329; 81001; 81003; 83690; 84443; 85025; 87086; 99283; 99284

== ENCOUNTER 2019-11-05 20:49 | Emergency (ER) | payer OTHER ==
--- NOTE | 2019-11-05 21:09 | ED Physician Documentation ---
History of Present Illness - Stated complaint Stated Complaint: FALL/BODY PX/DIZZY - Chief complaint Chief Complaint: Trauma Hd/Nk - History obtained from History obtained from: Patient (Patient is a very pleasant 64-year-old male who was walking down the stairs earlier today while wearing socks he slipped and hit the back of his head he is unsure if he lost consciousness or not he is complaining of some nausea and some lightheadedness and some concussive type symptoms he denies taking any blood thinners or antiplatelets or anticoagulants. He also complains of an abrasion on his abdomen but denies abdominal pain denies any bleeding from the head, denies any hematuria.) Review of Systems Constitutional: reports: Reviewed and negative Eyes: reports: Reviewed and negative Ears: reports: Reviewed and negative Nose: reports: Reviewed and negative Throat: reports: Reviewed and negative Cardiac: reports: Reviewed and negative Respiratory: reports: Reviewed and negative GI: reports: Reviewed and negative : reports: Reviewed and negative Skin: reports: Reviewed and negative Musculoskeletal: reports: Reviewed and negative Neurologic: reports: Head injury, LOC Psychiatric: reports: Reviewed and negative Endocrine: reports: Reviewed and negative Immunocompromised: reports: Reviewed and negative PD PAST MEDICAL HISTORY - Past Medical History Cardiovascular: High cholesterol Respiratory: None Endocrine/Autoimmune: Type 2 diabetes GI: None : None HEENT: None Psych: Depression, Anxiety, Panic attacks, Other Musculoskeletal: Osteoarthritis Derm: None - Past Surgical History Past Surgical History: Yes Ortho: Knee replacement - Present Medications Home Medications: Ambulatory Orders Medication Instructions Recorded Confirmed Ondansetron Odt [Zofran Odt] 4 mg TL Q6H PRN #10 tablet 11/05/19 - Allergies Allergies/Adverse Reactions: Allergies Allergy/AdvReac Type Severity Reaction Status Date / Time Penicillins Allergy Unknown Hives Verified 11/05/19 20:52 Tetracyclines Allergy Unknown Hives Verified 11/05/19 20:52 - Social History Does the pt smoke?: No Smoking Status: Never smoker Does the pt drink ETOH?: No Does the pt have substance abuse?: No - Immunizations Immunizations are current?: Yes - POLST Patient has POLST: No PD ED PE NORMAL - Vitals Vital signs reviewed: Yes - General General: Alert and oriented X 3, No acute distress, Well developed/nourished - HEENT HEENT: PERRL, Other (There is an abrasion on the posterior scalp there is no open wounds the abrasion is approximately 2 cm. There is no septal hematoma there is no hemotympanum there is no acute missing teeth there is no raccoon eyes and no sharma sign.) - Neck Neck: Supple, no meningeal sign, Other (No cervical tenderness palpation, no step-offs or deformities of the cervical spine.) - Cardiac Cardiac: RRR, No murmur, Strong equal pulses - Respiratory Respiratory: No respiratory distress, Clear bilaterally - Abdomen Abdomen: Normal bowel sounds, Soft, Non tender, Non distended, No organomegaly, Other (There is a small superficial abrasion to the right upper abdomen at the intercostal margin there is no ecchymosis.There is no flank tenderness and no flank ecchymosis no periumbilical ecchymosis.There is no midline abdominal pulsatile mass) - Back Back: No CVA TTP, No spinal TTP - Derm Derm: Normal color, Warm and dry, No rash - Extremities Extremities: No deformity, No tenderness to palpate, Normal ROM s pain, No edema, No calf tenderness / cord - Neuro Neuro: Alert and oriented X 3, live in housekeeper 2-12 intact, No motor deficit, No sensory deficit, Normal speech - Psych Psych: Normal mood, Normal affect Results - Vitals Vitals: Vital Signs - 24 hr 11/05/19 20:53 Temperature 36.5 C Heart Rate 75 Respiratory 16 Rate Blood Pressure 160/100 H O2 Saturation 97 Oxygen O2 Source Room air PD MEDICAL DECISION MAKING - ED course Complexity details: reviewed results, re-evaluated patient (22:25 symptoms improved. no abd pain, reports mild [place] and mild nausea. ), considered differential (History and exam are consistent with concussion. CT of the head ordered at this time.), d/w patient, d/w family Departure - Departure Disposition: 01 Home, Self Care Clinical Impression: Concussion Qualifiers: Encounter type: initial encounter Loss of consciousness presence/duration: with LOC of 30 min or less Qualified Code(s): S06.0X1A - Concussion with loss of consciousness of 30 minutes or less, initial encounter Scalp abrasion Qualifiers: Encounter type: initial encounter Qualified Code(s): S00.01XA - Abrasion of scalp, initial encounter Condition: Stable Instructions: ED Concussion Follow-Up: Nestor Gregorio MD [Provider Admit Priv/Credential] - Tomorrow Prescriptions: Ondansetron Odt [Zofran Odt] 4 mg TL Q6H PRN #10 tablet PRN Reason: Nausea / Vomiting Comments: Follow-up with a primary care provider tomorrow. Take Tylenol as needed for pain. Take Zofran as needed for nausea.
[2019-11-05] MEDS ORDERED: ONDANSETRON ODT 4 MG TABLET TL STA ×2 (21:20→22:25)
--- NOTE | 2019-11-05 22:05 | CT Report ---
PROCEDURE: HEAD WO INDICATIONS: LOC head injury TECHNIQUE: Noncontrast 4.5 mm thick angled axial sections acquired from the foramen magnum to the vertex. For r adiation dose reduction, the following was used: automated exposure control, adjustment of mA and/or kV according to patient size. COMPARISON: None. FINDINGS: Image quality: Excellent. CSF spaces: Basal cisterns are patent. No extra-axial fluid collections. Ventricles are normal in size and shape. Brain: No midline shift. No intracranial masses or hemorrhage. [place]-white matter interface is norm al. Skull and face: Calvarium and visualized facial bones are intact, without suspicious lesions. 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 Sinuses: Visualized sinuses and mastoids are clear. IMPRESSION: No acute intracranial abnormality. No skull fracture. Reviewed by: Shiela Mitchell MD on 11/05/2019 10:03 PM PDT Approved by: Shiela Mitchell MD on 11/05/2019 10:03 PM PDT Station ID: [id number]
[2019-11-05 22:32] VITALS: BP 154/77
== END 2019-11-05 22:31 | disposition home or self-care (01) ==
LOC: ED 20:49
DX: S06.0X1A Concussion with loss of consciousness of 30 minutes or less, initial encounter (principal); S00.01XA Abrasion of scalp, initial encounter; S30.811A Abrasion of abdominal wall, initial encounter; W10.9XXA Fall (on) (from) unspecified stairs and steps, initial encounter; E11.9 Type 2 diabetes mellitus without complications
CPT/HCPCS: 70450; 99283; 99284; Q0162

== ENCOUNTER 2020-06-06 12:53 | Outpatient (CLI) | payer OTHER ==
--- NOTE | 2020-06-09 08:58 | MRI Report ---
PROCEDURE: No Charge Procedure INDICATIONS: LOW BACK PAIN. BILAT LEG PAIN TECHNIQUE: Attempted lumbosacral spine MRI. The patient was severely claustrophobic, and terminated t he study. COMPARISON: None. FINDINGS: The T1 pulse sequence obtained is prominently blurred by patient motion during image acquisition. The sagittal T2 pulse sequence however is of better quality, and shows prominent degenerative disc disea se with moderately severe to severe degenerative change at L5 L3-4 and L4-5, and to a slightly lesser degree L5-S1. This is comprised of degenerative disc height reduction and desiccation, and posterior disc bulging at each of these 3 levels. There is what appears to be severe spinal stenosis at L4-5, with what may be a large herniated disc fragment or other masslike structure in that area. This struc ture is estimated at measuring up to 1.6 cm. It is near contiguous with the L4-L5 disc annulus, cente red slightly above. IMPRESSION: Very limited evaluation, comprised of a single sagittal T2 pulse sequences that allows some degree of accurate evaluation. From L3-4 through L5-S1 there is severe degenerative disc disease and likely al so relatively severe facet osteoarthritis poorly visualized. At the L4-5 level there appears to be a large 1.6 cm structure within the spinal canal contiguous with the disc annulus, considered most like ly a extruded disc fragment causing severe focal spinal stenosis in that area. Axial images are not available, the study is very limited. The finding warrants additional assessment which could be obtained by MR scanning with deep sedation supervised directly by the anesthesia staf f. The patient's severe claustrophobia precluded obtaining additional imaging. Reviewed by: Dileep Gallardo MD on 06/09/2020 8:57 AM PST Approved by: Dileep Gallardo MD on 06/09/2020 8:57 AM PST Station ID: [id number]
== END 2020-06-06 12:54 | disposition home or self-care (01) ==
LOC: DI 12:53
PROVIDERS: ATTEND Nurse Practitioner Family
DX: M54.42 Lumbago with sciatica, left side (principal)

== ENCOUNTER 2020-12-20 19:41 | Emergency (ER) | payer OTHER ==
[2020-12-20 19:55] LABS: BASOPHILS # (AUTO) 0.1 10^3/uL (0.0-0.1); BASOPHILS % (AUTO) 0.6 %; EOSINOPHILS # (AUTO) 0.2 10^3/uL (0.0-0.7); EOSINOPHILS % (AUTO) 1.7 %; HCT - HEMATOCRIT 44.9 % (42.0-52.0); HGB - HEMOGLOBIN 14.5 g/dL (14.0-18.0); LYMPHOCYTES # (AUTO) 1.3 10^3/uL (1.5-3.5); MEAN CORPUSCULAR HEMOGLOBIN 27.4 pg (27.0-31.0); MEAN CORPUSCULAR HGB CONC 32.3 g/dL (32.0-36.0); MEAN CORPUSCULAR VOLUME 84.9 fL (80.0-94.0); MEAN PLATELET VOLUME 9.5 fL (7.4-11.4); MONOCYTES # (AUTO) 0.7 10^3/uL (0.0-1.0); MONOCYTES % (AUTO) 7.1 %; NEUTROPHILS # (AUTO) 7.6 10^3/uL (1.5-6.6); NEUTROPHILS % (AUTO) 77.1 %; PLT - PLATELET COUNT 267 10^3/uL (130-450); RED BLOOD COUNT 5.29 10^6/uL (4.70-6.10); RED CELL DISTRIBUTION WIDTH 14.3 % (12.0-15.0); WHITE BLOOD COUNT 9.8 x10^3/uL (4.8-10.8)
[2020-12-20 20:11] LABS: ACETAMINOPHEN < 10 ug/mL (10-30); ALBUMIN 4.5 g/dL (3.2-5.5); ALBUMIN/GLOBULIN RATIO 1.4 (1.0-2.2); ALKALINE PHOSPHATASE 63 IU/L (42-121); ALT ALANINE AMINOTRANSFERASE 24 IU/L (10-60); AST ASPARTATE AMINOTRANSFERASE 20 IU/L (10-42); BILIRUBIN,TOTAL 0.7 mg/dL (0.2-1.0); BUN - BLOOD UREA NITROGEN 27 mg/dL (6-20); CALCIUM 9.6 mg/dL (8.5-10.3); CARBON DIOXIDE - CO2 28 mmol/L (21-32); CHLORIDE 102 mmol/L (101-111); ETOH - ETHANOL < 5.0 mg/dL; GFR - MDRD 75 (>89); GLUCOSE 186 mg/dL (70-100); LIPASE 33 U/L (22-51); POTASSIUM 4.9 mmol/L (3.5-5.0); SALICYLATE < 6.0 mg/dL; SODIUM 141 mmol/L (135-145); TOTAL PROTEIN 7.7 g/dL (6.7-8.2)
[2020-12-20 20:29] LABS: MUDS CUTOFF CONCENTRATIONS CUTOFF CONC BELOW:
[2020-12-20 20:31] LABS: BILIRUBIN,URINE NEGATIVE (NEGATIVE); GLUCOSE, URINE (UA) NEGATIVE (NEGATIVE); KETONES,URINE (UA) NEGATIVE (NEGATIVE); LEUKOCYTE ESTERASE, URINE NEGATIVE (NEGATIVE); NITRITE,URINE NEGATIVE (NEGATIVE); OCCULT BLOOD,URINE TRACE-INTA (NEGATIVE); PROTEIN,URINE NEGATIVE (NEGATIVE); UROBILINOGEN,URINE 0.2 (NORMAL) E.U./dL (NORMAL)
[2020-12-20 20:33] LABS: CLARITY,URINE CLEAR (CLEAR)
[2020-12-20 20:42] LABS: AMPHETAMINE SCREEN,URINE NEGATIVE (NEGATIVE); BARBITURATE SCREEN,UR NEGATIVE (NEGATIVE); BENZODIAZEPINES SCREEN, URINE NEGATIVE (NEGATIVE); COCAINE SCREEN URINE NEGATIVE (NEGATIVE); METHADONE SCREEN, URINE NEGATIVE (NEGATIVE); METHAMPHETAMINES SCREEN, URINE NEGATIVE (NEGATIVE); OPIATE SCREEN, URINE NEGATIVE (NEGATIVE); OXYCODONE SCREEN, URINE NEGATIVE (NEGATIVE); PROPOXYPHENE SCREEN, URINE NEGATIVE (NEGATIVE); THC CANNABINOID SCREEN, URINE NEGATIVE (NEGATIVE); TRICYCLIC ANTIDEPRESSANT,URINE NEGATIVE (NEGATIVE)
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
[2020-12-20 21:04] LABS: B. PARAPERTUSSIS- RESP PCR PAN NOT DETECTED; B. PERTUSSIS- RESP PCR PANEL NOT DETECTED; C. PNEUMONIAE- RESP PCR PANEL NOT DETECTED; CORONAVIRUS 229E-RESP PCR NOT DETECTED; CORONAVIRUS HKU1-RESP PCR NOT DETECTED; CORONAVIRUS NL63-RESP PCR NOT DETECTED; CORONAVIRUS OC43-RESP PCR NOT DETECTED; HUMAN METAPNEUMOVIRUS NOT DETECTED; INFLUENZA A- RESP PCR PANEL NOT DETECTED; INFLUENZA B - RESP PCR PANEL NOT DETECTED; M. PNEUMONIAE- RESP PCR PANEL NOT DETECTED; PARAINFLUENZA VIRUS 1 NOT DETECTED; PARAINFLUENZA VIRUS 2 NOT DETECTED; PARAINFLUENZA VIRUS 3 NOT DETECTED; PARAINFLUENZA VIRUS 4 NOT DETECTED; RHINOVIRUS/ENTEROVIRUS NOT DETECTED; RSV- RESP PCR PANEL NOT DETECTED; SARS-CoV-2 -RESP PCR PANEL NOT DETECTED
[2020-12-20 23:35] VITALS: BP 172/86
--- NOTE | 2020-12-21 08:08 | ED Physician Documentation ---
ED Addendum - Addendum Addendum: 12/21/20 08:06 Received sign out from Dr. Dumont, patient is pending completion of DCR evaluation for SI. I subsequently d/w DCR (Jaclyn) who clears patient for discharge home. I then talked with the patient and he is eagerly but politely requesting discharge home. He says he is comfortable with discharge home, contracts for safety in that he will call 911 if he feels unsafe, will contact his therapist on Tuesday to discuss follow-up
== END 2020-12-20 23:53 | disposition home or self-care (01) ==
LOC: EDUNIT# → ED 19:41
DX: R45.851 Suicidal ideations (principal); F32.9 Major depressive disorder, single episode, unspecified; E11.9 Type 2 diabetes mellitus without complications; Z20.822 Contact with and (suspected) exposure to COVID-19
CPT/HCPCS: 0202U; 36415; 80053; 80306; 80307; 80320; 80329; 81003; 83690; 84443; 85025; 93005; 99283; 81001; 87086

== ENCOUNTER 2023-03-22 09:19 | Day surgery (SDC) | payer MEDICARE, OTHER ==
[2023-03-22] MEDS ORDERED: LACTATED RINGERS 1,000 ML IV ONE (09:23)
[2023-03-22] MEDS ORDERED: PROPOFOL 500 MG/50 ML 500 MG/50 ML VIAL ONE (10:08)
--- NOTE | 2023-03-22 10:23 | ANESTHESIA ---
Pre-Anesthesia VS, & Labs - Diagnosis screening - Procedure colonoscopy Vital Signs: Temp Pulse Resp BP Pulse Ox O2 Flow Rate 35.7 C L 101 H 16 130/87 H 98 03/22/23 09:23 03/22/23 09:23 03/22/23 09:23 03/22/23 09:23 03/22/23 09:23 Height: 5 ft 4 in Weight (kg): 73 kg Body Mass Index: 27.6 BMI Classification: Overweight - NPO >8 hours - Lab Results Current Lab Results: Laboratory Tests 03/22/23 09:41: POC Whole Bld Glucose 181 H Home Medications and Allergies Home Medications: Ambulatory Orders Loratadine [Claritin] 1 cap PO DAILY 03/21/23 metFORMIN [Glucophage] 1 tab PO BID 03/21/23 Loratadine [Claritin] 1 cap PO DAILY 03/21/23 metFORMIN [Glucophage] 1 tab PO BID 03/21/23 Allergies/Adverse Reactions: Allergies Allergy/AdvReac Type Severity Reaction Status Date / Time Penicillins Allergy Unknown Hives Verified 12/20/20 20:00 Tetracyclines Allergy Unknown Hives Verified 12/20/20 20:00 Anes History & Medical History - Anesthetic History Anesthesia Complications: reports: No previous complications - Medical History Cardiovascular: reports: Hypertension, High cholesterol Pulmonary: reports: None Gastrointestinal: reports: None Urinary: reports: Other (prostate cancer) Musculoskeletal: reports: Osteoarthritis Endocrine/Autoimmune: reports: Type 2 diabetes Blood Disorders: reports: None Skin: reports: None Smoking Status: Never smoker History of Cancer?: Yes - Surgical History General: reports: Colonoscopy Eyes Ears Nose Throat (EENT): reports: Tonsil/Adenoidectomy Orthopedic: reports: Knee replacement Exam General: Alert, Oriented x3 Dental: WNL Mouth Opening: Greater than 4 Fingerbreadths Neck Mobility: Normal Mallampati classification: II Thyromental Distance: greater than 6 cm Respiratory: Lungs clear Cardiovascular: Regular rate, Normal S1, Normal S2 Plan Anesthesia Type: Total IV Consent for Procedure(s) Verified and Reviewed: Yes Code Status: Attempt Resuscitation ASA classification: 2-Mild systemic disease Is this case an emergency?: No
[2023-03-22] MEDS ORDERED: LACTATED RINGERS 100 ML IV ONE ×2 (11:01)
[2023-03-22 11:23] VITALS: O2SAT 95
[2023-03-22 11:32] VITALS: BP 101/68
--- NOTE | 2023-03-22 12:04 | ANESTHESIA POST OP EVALUATION ---
Anesthesia Post Eval - Post Anesthesia Eval Vitals: Last Vital Signs Temp 36.0 C L 03/22/23 11:32 Pulse 87 03/22/23 11:32 Resp 16 03/22/23 11:32 BP 101/68 03/22/23 11:32 Pulse Ox 95 03/22/23 11:32 O2 Flow Rate CV Function Including HR & BP: Stable Pain Control: Satisfactory Nausea & Vomiting: Negative Mental Status: Baseline Respiratory Status: Airway Patent Hydration Status: Satisfactory Anesthesia Complications: None
== END 2023-03-22 09:20 | disposition home or self-care (01) ==
LOC: SDS 09:19
PROVIDERS: ATTEND Surgery
DX: Z12.11 Encounter for screening for malignant neoplasm of colon (principal); I78.1 Nevus, non-neoplastic; E11.9 Type 2 diabetes mellitus without complications; Z86.010 Personal history of colon polyps; Z79.84 Long term (current) use of oral hypoglycemic drugs; Z85.46 Personal history of malignant neoplasm of prostate; Z92.3 Personal history of irradiation
CPT/HCPCS: G0105; J7120

== ENCOUNTER 2023-07-11 08:00 | Outpatient (CLI) | payer MEDICARE, OTHER | END 2023-07-11 08:01 | disposition home or self-care (01) | LOC: LAB.N 08:00 | PROVIDERS: ATTEND Family Medicine | DX: U07.1 COVID-19 (principal) ==

== ENCOUNTER → 2023-07-15 | Outpatient (CLI) | payer MEDICARE, OTHER | LOC: LAB.N 08:00 | PROVIDERS: ATTEND Physician Assistant Medical | DX: U07.1 COVID-19 (principal) | CPT/HCPCS: 82962 ==

== ENCOUNTER 2023-11-19 10:53 | Outpatient (CLI) | payer MEDICARE, OTHER ==
--- NOTE | 2023-11-19 12:51 | XRAY Report ---
PROCEDURE: Lumbar Spine 2-3V INDICATIONS: BACK PAIN TECHNIQUE: 2 views of the lumbar spine were acquired. COMPARISON: 12/04/2010 FINDINGS: Surgical change: None. Bones: 5 [id number]-lubleib vertebrae are present. Grade 1 anterolisthesis of L5 on S1. No vertebral fátima dy compression fractures. No suspicious bony lesions. Moderate to severe disc height loss at L3-4, L 4-5. Moderate disc height loss at L5-S1. Mild disc height loss at remaining levels. Facet arthrosis o f L2-S1. Soft tissues: Overlying bowel gas pattern is normal. No suspicious soft tissue calcifications. IMPRESSION: Moderate to severe, lower lumbar predominant, facet arthrosis and degenerative disc disease, progress ed since 2010. Reviewed by: Juan Chang MD on 11/19/2023 12:50 PM PDT Approved by: Juan Chang MD on 11/19/2023 12:50 PM PDT Station ID: [id number]
--- NOTE | 2023-11-19 12:57 | XRAY Report ---
PROCEDURE: Thoracic Spine 2V INDICATIONS: BACK PAIN TECHNIQUE: 3 views of the thoracic spine were acquired. COMPARISON: None. FINDINGS: Bones: No fractures or dislocations. No suspicious bony lesions. 12 pairs of ribs are noted, and a ppear intact where visualized. Soft tissues: No paravertebral stripe thickening. IMPRESSION: No acute bony abnormality. No significant degenerative change. Reviewed by: Juan Chang MD on 11/19/2023 12:56 PM PDT Approved by: Juan Chang MD on 11/19/2023 12:56 PM PDT Station ID: [id number]
== END 2023-11-19 10:54 | disposition home or self-care (01) ==
LOC: DI 10:53
PROVIDERS: ATTEND Physician Assistant Medical
DX: M51.36 Other intervertebral disc degeneration, lumbar region (principal); M51.37 Other intervertebral disc degeneration, lumbosacral region; M47.816 Spondylosis without myelopathy or radiculopathy, lumbar region; M47.817 Spondylosis without myelopathy or radiculopathy, lumbosacral region; M43.17 Spondylolisthesis, lumbosacral region; G89.29 Other chronic pain; Z85.46 Personal history of malignant neoplasm of prostate

== ENCOUNTER 2024-01-16 08:00 | Outpatient (CLI) | payer MEDICARE, OTHER ==
[2024-01-16 12:53] LABS: BASOPHILS # (AUTO) 0.1 10^3/uL (0.0-0.1); BASOPHILS % (AUTO) 0.8 %; EOSINOPHILS # (AUTO) 0.2 10^3/uL (0.0-0.7); EOSINOPHILS % (AUTO) 2.8 %; HCT - HEMATOCRIT 43.6 % (42.0-52.0); HGB - HEMOGLOBIN 13.9 g/dL (14.0-18.0); LYMPHOCYTES # (AUTO) 1.2 10^3/uL (1.5-3.5); LYMPHOCYTES % (AUTO) 15.4 %; MEAN CORPUSCULAR HEMOGLOBIN 27.3 pg (27.0-31.0); MEAN CORPUSCULAR HGB CONC 31.9 g/dL (32.0-36.0); MEAN CORPUSCULAR VOLUME 85.7 fL (80.0-94.0); MEAN PLATELET VOLUME 10.3 fL (7.4-11.4); MONOCYTES # (AUTO) 0.6 10^3/uL (0.0-1.0); MONOCYTES % (AUTO) 7.6 %; NEUTROPHILS # (AUTO) 5.8 10^3/uL (1.5-6.6); NEUTROPHILS % (AUTO) 72.8 %; PLT - PLATELET COUNT 292 10^3/uL (130-450); RED BLOOD COUNT 5.09 10^6/uL (4.70-6.10); RED CELL DISTRIBUTION WIDTH 13.7 % (12.0-15.0); WHITE BLOOD COUNT 7.9 x10^3/uL (4.8-10.8)
[2024-01-16 13:09] LABS: CREATININE,URINE 123.8 mg/dL; MICROALBUM/CREATININE RATIO,UR 24.2 ug/mg (<30.0)
[2024-01-16 13:23] LABS: ALBUMIN 4.2 g/dL (3.2-5.5); ALBUMIN/GLOBULIN RATIO 1.5 (1.0-2.2); BILIRUBIN,TOTAL 0.4 mg/dL (0.2-1.0); CALCIUM 9.6 mg/dL (8.5-10.3); CREATININE 0.9 mg/dL (0.6-1.3); POTASSIUM 4.2 mmol/L (3.5-4.5)
[2024-01-16 13:53] LABS: THYROID STIMULATING HORMONE 1.53 uIU/mL (0.34-5.60)
[2024-01-16 14:40] LABS: ESTIMATED AVERAGE GLUCOSE 157 mg/dL (70-100); HEMOGLOBIN A1c% 7.1 % (4.27-6.07)
== END 2024-01-16 08:01 | disposition home or self-care (01) ==
LOC: LAB.N 08:00
PROVIDERS: ATTEND Family Medicine
DX: C61 Malignant neoplasm of prostate (principal); E11.65 Type 2 diabetes mellitus with hyperglycemia; R53.83 Other fatigue
CPT/HCPCS: 36415; 80053; 82043; 82570; 83036; 84153; 84403; 84443; 85025